=== PATIENT | female | born 1960 | race Caucasian/White ===

== ENCOUNTER 2020-10-15 23:37 | Emergency (ER) | payer MEDICAID ==
[~2020-10-15] VITALS: Ht 170.2 cm; Wt 63.6 kg
[2020-10-16 01:20] VITALS: BP 146/88
[2020-10-16] MEDS ORDERED: ASPIRIN CHEWABLE 81 MG TABLET. PO ONE (02:30)
--- NOTE | 2020-10-16 02:38 | RAD ---
INDICATION: Reason: chest pain / Spl. Instructions: / History: COMPARISON: None. FINDINGS: Single view of chest obtained. Hyperexpanded lungs. There is some calcifications within the mediastinum which could be calcified lym ph nodes from chronic granulomatous disease. Cardiac silhouette is unremarkable. Mild haziness at dennis g bases. Degenerative changes of the spine. Degenerative changes of the left greater than right shoul crow. IMPRESSION: * Hyperexpanded lungs. Would correlate for possible causes such as asthma or emphysema. There is maria e e haziness at lung bases which could be from atelectasis or infiltrate. Electronically signed by: Matthew Couch MD (10/16/2020 2:36 AM) [id number]
--- NOTE | 2020-10-16 02:44 | PHYS DOC ---
Past Medical History Past Medical History: Bipolar, Hypertension, Other Additional Past Medical Histor: Pt poor historian and going from hosp. to hosp. b/c she is cold & homless Past Surgical History: Cholecystectomy, Smoking Status: Current Every Day Smoker Alcohol Use: None General Adult EDM: Chief Complaint: HOMELESS HPI: HPI: Patient is a 60 year old female presents with a chief complaint of chest pain. Patient states chest pain started around 2000 hrs. Patient states pain was sudden and describes it as sharp in nature and states that is constant. Patient is homeless. She was seen this afternoon at [facility] and diagnosed with urinary tract infection. Patient states she took a bus from [place] to the [facility]. Patient states she has been hanging out at the [facility] all night. Patient called 911 around 2000 hrs. due to her chest pain. Patient denies any associated nausea vomiting or diarrhea. EKG performed there is no acute ischemic changes. Chest discomfort is reproducible to palpation. Review of Systems: Review of Systems: Constitutional: Denies fever or chills. [] Eyes: Denies change in visual acuity. [] HENT: Denies nasal congestion or sore throat. [] Respiratory: Denies cough or shortness of breath. [] Cardiovascular: Denies chest pain or edema. [] GI: Denies abdominal pain, nausea, vomiting, bloody stools or diarrhea. [] : Denies dysuria. [] Musculoskeletal: Denies back pain or joint pain. [] Integument: Denies rash. [] Neurologic: Denies headache, focal weakness or sensory changes. [] Endocrine: Denies polyuria or polydipsia. [] Lymphatic: Denies swollen glands. [] Psychiatric: Denies depression or anxiety. [] Heart Score: HEART Score for Chest Pain: HEART Score for Chest Pain Response (Comments) Value History Slighlty/Non-Suspicious 0 ECG Normal 0 Age >45 - < 65 1 Risk Factors 1 or 2 Risk Factors 1 Troponin < Normal Limit 0 Total 2 Risk Factors: Risk Factors: DM, Current or recent (<one month) smoker, HTN, HLP, family history of CAD, obesity. Risk Scores: Score 0 - 3: 2.5% MACE over next 6 weeks - Discharge Home Score 4 - 6: 20.3% MACE over next 6 weeks - Admit for Clinical Observation Score 7 - 10: 72.7% MACE over next 6 weeks - Early Invasive Strategies Current Medications: Current Medications Medications (Trade) Dose Ordered Sig/Tamela Start Time Stop Time Status Last Admin Dose Admin Aspirin (Aspirin Chewable) 324 mg 1X ONCE 10/16/20 02:30 10/16/20 02:31 DC 10/16/20 02:27 324 MG Allergies: Allergies: Allergies Coded Allergies Type Severity Reaction Last Updated Verified amitriptyline Allergy Intermediate 10/16/20 Yes ketorolac Allergy Intermediate 10/16/20 Yes prochlorperazine Allergy Intermediate 10/16/20 Yes sumatriptan Allergy Intermediate 10/16/20 Yes Physical Exam: PE: Constitutional: Well developed, well nourished, no acute distress, non-toxic appearance. [] HENT: Normocephalic, atraumatic, bilateral external ears normal, oropharynx moist, no oral exudates, nose normal. [] Eyes: PERRLA, EOMI, conjunctiva normal, no discharge. [] Neck: Normal range of motion, no tenderness, supple, no stridor. [] Cardiovascular:Heart rate regular rhythm, no murmur [left chest is tender to palpation pain is reproducible] Lungs & Thorax: Bilateral breath sounds clear to auscultation [] Abdomen: Bowel sounds normal, soft, no tenderness, no masses, no pulsatile masses. [] Skin: Warm, dry, no erythema, no rash. [] Back: No tenderness, no CVA tenderness. [] Extremities: No tenderness, no cyanosis, no clubbing, ROM intact, no edema. [] Neurologic: Alert and oriented X 3, normal motor function, normal sensory function, no focal deficits noted. [] Psychologic: Affect normal, judgement normal, mood normal. [] Current Patient Data: Vital Signs: Vital Signs Date Time Temp Pulse Resp B/P (MAP) Pulse Ox O2 Delivery O2 Flow Rate FiO2 10/16/20 01:20 98.1 93 18 146/88 (107) 100 Room Air 98.1 EKG: EKG: [] EKG taken at 2358 heart rate [address] elevation no ST depression no acute AL Radiology/Procedures: Radiology/Procedures: [] Impression: Single view of chest obtained. Hyperexpanded lungs. There is some calcifications within the mediastinum which could be calcified lymph nodes from chronic granulomatous disease. Cardiac silhouette is unremarkable. Mild haziness at lung bases. Degenerative changes of the spine. Degenerative changes of the left greater than right shoulder. IMPRESSION: * Hyperexpanded lungs. Would correlate for possible causes such as asthma or emphysema. There is some haziness at lung bases which could be from atelectasis or infiltrate. Electronically signed by: Matthew Couch MD (10/16/2020 2:36 AM) [id number] Course & Med Decision Making: Course & Med Decision Making Pertinent Labs and Imaging studies reviewed. (See chart for details) [] Dragon Disclaimer: Dragon Disclaimer: This electronic medical record was generated, in whole or in part, using a voice recognition dictation system. Departure Departure Impression: Primary Impression: Atypical chest pain Disposition: 01 DC HOME SELF CARE/HOMELESS Condition: STABLE Referrals: NO PCP (PCP) Patient Instructions: Chest Pain (Nonspecific) YAMILA VANCE DO Oct 16, 2020 02:44
--- NOTE | 2020-10-16 10:10 | EKG ---
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
== END 2020-10-16 03:44 | disposition home or self-care (01) ==
LOC: ER 23:37
DX: R07.89 Other chest pain (principal); I10 Essential (primary) hypertension; F31.9 Bipolar disorder, unspecified; F17.200 Nicotine dependence, unspecified, uncomplicated; Z90.49 Acquired absence of other specified parts of digestive tract; Z98.890 Other specified postprocedural states; Z88.6 Allergy status to analgesic agent; Z88.8 Allergy status to other drugs, medicaments and biological substances
CPT/HCPCS: 36415; 71045; 84484; 93005; 99285